=== PATIENT | female | born 1985 | race Caucasian/White ===

== ENCOUNTER 2017-12-26 19:31 | Observation (INO) | payer BC ==
[2017-12-26] MEDS ORDERED: METOCLOPRAMIDE 5 MG/ML 2 ML VIAL IVP STA (21:13)
[2017-12-26] MEDS ORDERED: SODIUM CHLORIDE 0.9% 1,000 ML IV STA (21:13)
[2017-12-26] MEDS ORDERED: diphenhydrAMINE 50 MG/ML 1 ML VIAL IVP STA (21:13)
[2017-12-26] MEDS ORDERED: ACETAMINOPHEN IV (For NPO) 1,000 MG in EMPTY BAG 1 BAG IVPB ONE (21:14)
--- NOTE | 2017-12-26 21:19 | ED ---
General Adult HPI - General Chief complaint: Headache Stated complaint: blurred vision/left side numbness/dizzy Time Seen by Provider: 12/26/17 21:01 Source: patient, RN notes reviewed, old records reviewed Mode of arrival: ambulatory Limitations: no limitations - History of Present Illness Initial comments: 32-year-old female presenting for evaluation of left eye vision changes, and left upper extremity numbness. Patient states that the symptoms began approximately 2 hours ago. They were accompanied by slight headache which was right-sided frontal. This headache has progressively worsened. It was not a severe sudden onset headache. His gradually worsening dull ache which is right frontal and right retro-orbital. Vision changes lasted approximately 10 minutes as well as or sensory changes to her left arm. No weakness appreciated. Patient has no previous history of significant headaches including no migraine history. She does have history of previous episode which affected the right side of her body approximately one year ago. She was seen in the emergency department and evaluated by neurology. She was instructed to take an aspirin. However she has not been taking this medication regularly. No other chronic medical problems. She does have some mild nausea, no vomiting. No chest pain or abdominal pain. Sensory changes are resolved as well as her vision is normal at the time my evaluation. She only complains of persistent right-sided headache. - Related Data Home Medications Medication Instructions Recorded Confirmed Lessina 28 1 tab PO DAILY 12/26/17 12/26/17 Allergies Allergy/AdvReac Type Severity Reaction Status Date / Time No Known Allergies Allergy Verified 12/26/17 20:24 Review of Systems ROS Statement: Those systems with pertinent positive or pertinent negative responses have been documented in the HPI. ROS Other: All systems not noted in ROS Statement are negative. Past Medical History Past Medical History: No Reported History History of Any Multi-Drug Resistant Organisms: None Reported Past Surgical History: Adenoidectomy Past Psychological History: No Psychological Hx Reported Smoking Status: Former smoker Past Alcohol Use History: Occasional Past Drug Use History: None Reported General Exam Limitations: no limitations General appearance: alert, in no apparent distress Head exam: Present: atraumatic, normocephalic Eye exam: Present: normal appearance, PERRL, EOMI ENT exam: Present: normal exam Neck exam: Present: normal inspection. Absent: tenderness, meningismus Respiratory exam: Present: normal lung sounds bilaterally, respiratory distress. Absent: wheezes Cardiovascular Exam: Present: regular rate, normal rhythm GI/Abdominal exam: Present: soft. Absent: distended, tenderness, guarding Extremities exam: Present: normal inspection, normal capillary refill. Absent: pedal edema Neurological exam: Present: alert, oriented X3, CN II-XII intact, other (No ataxia, normal [id number], normal finger to nose. NIH is 0). Absent: motor sensory deficit Psychiatric exam: Present: normal affect, normal mood Skin exam: Present: warm, dry, intact. Absent: cyanosis, diaphoretic Course Vital Signs 12/26/17 12/26/17 20:03 23:04 Temperature 98.4 F Pulse Rate 82 88 Respiratory 18 18 Rate Blood Pressure 135/79 129/70 O2 Sat by Pulse 100 98 Oximetry - Reevaluation(s) Reevaluation #1: 12/26/17 23:16 Reevaluation, no neurological complaints, nonfocal exam, NIH remains 0 Medical Decision Making - Medical Decision Making 32-year-old female presenting with left eye visual disturbance and left hand and forearm numbness. Patient does have similar episode in the past approximately one year ago but this was right sided. She was seen by neurology at that time. At the time my evaluation patient's neurologic exam is nonfocal, no ataxia. She is overall well-appearing. Normal eye exam. Laboratory studies are obtained, normal CBC, normal CMP head CT is obtained which is negative for intracranial hemorrhage or mass effect. Given the recurrence of this patient's symptoms, she will be placed in observation for neurology evaluation. Echo will be obtained. Patient will be started on aspirin. Case discussed with Dr. Izaguirre, who will accept admission - Lab Data Result diagrams: 12/26/17 21:25 12/26/17 21:25 Lab Results 12/26/17 12/26/17 Range/Units 21:25 21:25 WBC 7.9 (3.8-10.6) k/uL RBC 4.20 (3.80-5.40) m/uL Hgb 13.9 (11.4-16.0) gm/dL Hct 40.1 (34.0-46.0) % MCV 95.7 (80.0-100.0) fL MCH 33.2 (25.0-35.0) pg MCHC 34.7 (31.0-37.0) g/dL RDW 12.1 (11.5-15.5) % Plt Count 231 (150-450) k/uL Neutrophils % 81 % Lymphocytes % 13 % Monocytes % 4 % Eosinophils % 0 % Basophils % 0 % Neutrophils # 6.5 (1.3-7.7) k/uL Lymphocytes # 1.1 (1.0-4.8) k/uL Monocytes # 0.3 (0-1.0) k/uL Eosinophils # 0.0 (0-0.7) k/uL Basophils # 0.0 (0-0.2) k/uL Sodium 139 (137-145) mmol/L Potassium 4.0 (3.5-5.1) mmol/L Chloride 105 (98-107) mmol/L Carbon Dioxide 20 L (22-30) mmol/L Anion Gap 14 mmol/L BUN 12 (7-17) mg/dL Creatinine 0.71 (0.52-1.04) mg/dL Est GFR (CKD-EPI)AfAm >90 (>60 ml/min/1.73 sqM) Est GFR (CKD-EPI)NonAf >90 (>60 ml/min/1.73 sqM) Glucose 84 (74-99) mg/dL Calcium 9.4 (8.4-10.2) mg/dL Total Bilirubin 0.5 (0.2-1.3) mg/dL AST 22 (14-36) U/L ALT 25 (9-52) U/L Alkaline Phosphatase 47 (38-126) U/L Total Protein 6.8 (6.3-8.2) g/dL Albumin 4.4 (3.5-5.0) g/dL HCG, Quant <2.4 mIU/mL Disposition Clinical Impression: Headache, TIA (transient ischemic attack) Disposition: ADMITTED IP TO THIS [facility] Condition: Stable Referrals: None,Stated [Primary Care Provider] - 1-2 days Decision to Admit Reason: Admit from EC Decision Date: 12/26/17 Decision Time: 23:17
[2017-12-26 21:41] LABS: Basophils % (A) 0 %; Eosinophils % (A) 0 %; HCT 40.1 % (34.0-46.0); HGB 13.9 gm/dL (11.4-16.0); Lymphocytes # (A) 1.1 k/uL (1.0-4.8); Lymphocytes % (A) 13 %; MCH 33.2 pg (25.0-35.0); MCHC 34.7 g/dL (31.0-37.0); MCV 95.7 fL (80.0-100.0); Mean Platelet Volume 7.7; Monocytes # (A) 0.3 k/uL (0-1.0); Monocytes % (A) 4 %; Neutrophils # (A) 6.5 k/uL (1.3-7.7); Neutrophils % (A) 81 %; Platelet Count 231 k/uL (150-450); RDW 12.1 % (11.5-15.5); WBC 7.9 k/uL (3.8-10.6)
[2017-12-26 22:08] LABS: ALT 25 U/L (9-52); AST 22 U/L (14-36); Albumin 4.4 g/dL (3.5-5.0); Alkaline Phosphatase 47 U/L (38-126); Anion Gap 14 mmol/L; Blood Urea Nitrogen 12 mg/dL (7-17); Calcium 9.4 mg/dL (8.4-10.2); Carbon Dioxide 20 mmol/L (22-30); Chloride 105 mmol/L (98-107); Glucose 84 mg/dL (74-99); Sodium 139 mmol/L (137-145); Total Bilirubin 0.5 mg/dL (0.2-1.3); Total Protein 6.8 g/dL (6.3-8.2)
[2017-12-26 22:23] LABS: HCG,Quantitative Serum <2.4 mIU/mL
--- NOTE | 2017-12-26 22:38 | CT ---
EXAMINATION TYPE: CT brain wo con DATE OF EXAM: 12/26/2017 COMPARISON: 11/03/2014 HISTORY: Vision changes, dizziness, left sided numbness. CT DLP: 996.6 mGycm. Automated Exposure Control for Dose Reduction was Utilized. TECHNIQUE: CT scan of the head is performed without contrast. FINDINGS: Ventricles and sulci appear normal. There is no mass effect nor midline shift. There is n o sign of intracranial hemorrhage. The calvarium is intact. IMPRESSION: Negative CT scan of the brain. No change.
[2017-12-26] MEDS ORDERED: ACETAMINOPHEN TAB 500 MG TAB PO STA (23:07)
[2017-12-26] MEDS ORDERED: ACETAMINOPHEN TAB 325 MG TAB PO PRN (23:13)
[2017-12-26] MEDS ORDERED: NALOXONE 0.4 MG/ML 1 ML VIAL IV PRN (23:13)
[2017-12-26] MEDS ORDERED: ONDANSETRON 4 MG/2 ML VIAL IVP PRN (23:13)
[2017-12-26] MEDS ORDERED: IBUPROFEN 400 MG TAB PO PRN (23:13)
[2017-12-26] MEDS ORDERED: ASPIRIN 325 MG TAB PO STA (23:15)
[2017-12-26] MEDS ORDERED: SODIUM CHLORIDE 0.9% 1,000 ML IV SCH (23:15)
--- NOTE | 2017-12-27 01:06 | P.HPIM ---
History of Present Illness H&P Date: 12/27/17 Chief Complaint: left UE numbness and left eye vision change 32-year-old healthy female with no significant past medical history except for possible TIA 2 years ago. Patient presented with brief left eye vision changes and left upper extremity numbness she reports the symptoms lasted for 10 minutes and then resolves on its own followed by severe left-sided headache retro-orbital was not associated with any nausea or vomiting was not associated with dizziness or lightheadedness pain was initially dull and then kept on progressing to severe 8 out of 10 in severity and nonradiating resolve after receiving IV Tylenol in the ER. She reports no history of migraine she might had one attack severe headache in her life That she couldn't remember. Patient currently denies any focal neurologic deficits. Patient reports some life stressors related to her father having a stroke with symptoms similar to what she described she said her dad had some changes in his vision and then eventually was diagnosed with a stroke that's when she got concerned and wanted to get evaluated. She otherwise denies any fevers or chills denies any chest pain or trouble breathing denies any GI bleeding denies any abdominal pain denies any heat or cold intolerances denies any sick contacts denies any recent traveling. Review of Systems Pertinent positives as noted in HPI. All other systems were reviewed and are negative Past Medical History Past Medical History: No Reported History History of Any Multi-Drug Resistant Organisms: None Reported Past Surgical History: Adenoidectomy Past Psychological History: No Psychological Hx Reported Smoking Status: Former smoker Past Alcohol Use History: Occasional Past Drug Use History: None Reported - Past Family History Father Family Medical History: CVA/TIA Medications and Allergies Home Medications Medication Instructions Recorded Confirmed Type Lessina 28 1 tab PO DAILY 12/26/17 12/26/17 History Allergies Allergy/AdvReac Type Severity Reaction Status Date / Time No Known Allergies Allergy Verified 12/26/17 20:24 Physical Exam Vitals: Vital Signs Temp Pulse Resp BP Pulse Ox 12/26/17 23:04 88 18 129/70 98 12/26/17 20:03 98.4 F 82 18 135/79 100 Intake and Output 12/26/17 12/26/17 12/27/17 14:59 22:59 06:59 Other: Weight 56.699 kg Constitutional: No acute distress, conversant, pleasant Eyes: Anicteric sclerae, moist conjunctiva, no lid-lag Pupils equal round reactive to light ENMT: NC/AT Oropharynx clear, no erythema, or exudates Neck: Supple, FROM, no masses, or JVD No carotid bruits No thyromegaly Lungs: Clear to auscultation Clear to percussion Normal respiratory effort, no accessory muscle use Cardiovascular: Heart regular in rate and rhythm, No murmurs, gallops, or rubs No peripheral edema Abdominal: Soft Nontender, no guarding, rebound or rigidity Abdomen moving with respiration Normoactive bowel sounds No hepatomegaly, No splenomegaly No palpable mass No abdominal wall hernia noted Skin: Normal temperature, tone, texture, turgor No induration No subcutaneous nodules No rash, lesions No ulcers Extremities: No digital cyanosis No clubbing Pedal pulses intact and symmetrical Radial pulses intact and symmetrical No calf tenderness Psychiatric: Alert and oriented to person, place and time Appropriate affect fair judgment Neuro Muscles Strength 5/5 in all 4 extremities Sensation to light touch grossly present throughout Cranial nerves II-XII grossly intact No focal sensory deficits Cerebellar exam including finger-nose test was intact, heel ortega movement was intact Lymphatics: no palpable cervical or supraclavicular , or inguinal lymph nodes Results CBC & Chem 7: 12/26/17 21:25 12/26/17 21:25 Labs: Abnormal Lab Results - Last 24 Hours (Table) 12/26/17 Range/Units 21:25 Carbon Dioxide 20 L (22-30) mmol/L Assessment and Plan Assessment: 32-year-old female otherwise healthy The patient is admitted with an anticipated less than 2 midnight stay for evaluation of transient blurry vision of the left eye and left upper extremity numbness that lasted for about 10 minutes and resolved on its own suspected to be TIA patient also reported history of TIA 2 years ago. Patient admitted for further workup and neurologic evaluation Plan: #Brief left eye blurry vision and left upper extremity numbness rule out TIA Check carotid ultrasound Check 2-D echocardiogram CT head was negative Neurologic consults Neurochecks TSH B12 Lipid profile Aspirin #DVT prophylaxis Heparin subcu 3 times a day Surrogate decision-maker: Patient mother CODE STATUS: Full code Discussed with: Patient, ER, Anticipated discharge place: Home A total of 50 minutes was spent on the care of this complex patient more than 50 % of the time was spent in counseling and care coordination.
[2017-12-27] MEDS: HEPARIN SODIUM,PORCINE 5,000 UNIT/ML 1 ML VIAL SQ SCH ×2 (08:15→16:04)
[2017-12-27] MEDS ORDERED: ASPIRIN 325 MG TAB PO SCH (09:00)
--- NOTE | 2017-12-27 09:17 | US ---
EXAMINATION TYPE: US carotid duplex BILAT DATE OF EXAM: 12/27/2017 COMPARISON: US 12/23/14 CLINICAL HISTORY: tia. Patient claims visual disturbances and left hand numbness. EXAM MEASUREMENTS: RIGHT: Peak Systolic Velocity (PSV) cm/sec ----- Right CCA: 91.5 ----- Right ICA: 107.0 ----- Right ECA: 110.9 ICA/CCA ratio: 1.2 RIGHT: End Diastole cm/sec ----- Right CCA: 22.0 ----- Right ICA: 47.4 ----- Right ECA: 10.7 LEFT: Peak Systolic Velocity (PSV) cm/sec ----- Left CCA: 137.2 ----- Left ICA: 125.4 ----- Left ECA: 150.9 ICA/CCA ratio: 0.9 LEFT: End Diastole cm/sec ----- Left CCA: 30.8 ----- Left ICA: 36.7 ----- Left ECA: 17.8 VERTEBRALS (direction of flow): Right Vertebral: Antegrade Left Vertebral: Antegrade Rhythm: Normal tortuous left ICA. IMPRESSION: No evidence for hemodynamically significant stenosis. Criteria for Assigning % of Stenosis / Diameter reduction (Estimation based on the indirect measurements of the internal carotid artery velocities (ICA PSV). 1. Normal (no stenosis)=ICA PSV < 125 cm/s: ratio < 2.0: ICA EDV<40 cm/s. 2. Less than 50% stenosis=ICA PSV < 125 cm/s: ratio < 2.0: ICA EDV<40 cm/s. 3. 50 to 69% stenosis=ICA PSV of 125 to 230 cm/s: ration 2.0 ? 4.0: ICA EDV 40-100 cm/s. 4. Greater than 70% stenosis to near occlusion= ICA PSV > 230 cm/s: ratio > 4.0: ICA EDV > 100 cm/s. 5. Near occlusion= ICA PSV velocities may be low or undetectable: variable ratio and ICA EDV. 6. Total occlusion=unable to detect flow.
--- NOTE | 2017-12-27 10:54 | ECHOF ---
Referral Reason:tia MEASUREMENTS -------- HEIGHT: 170.2 cm WEIGHT: 56.7 kg BP: RVIDd: 2.4 cm (< 3.3) IVSd: 0.8 cm (0.6 - 1.1) LVIDd: 4.2 cm (3.9 - 5.3) LVPWd: 0.7 cm (0.6 - 1.1) IVSs: 1.0 cm LVIDs: 2.8 cm LVPWs: 1.2 cm LA Diam: 2.6 cm (2.7 - 3.8) Ao Diam: 2.4 cm (2.0 - 3.7) AV Cusp: 1.6 cm (1.5 - 2.6) LA Diam: 2.7 cm (2.7 - 3.8) MV EXCURSION: 16.074 mm (> 18.000) MV EF SLOPE: 116 mm/s (70 - 150) EPSS: 0.2 cm MV E Abilio: 0.93 m/s MV DecT: 170 ms MV A Abilio: 0.50 m/s MV E/A Ratio: 1.87 RAP: 5.00 mmHg RVSP: 22.99 mmHg FINDINGS -------- Sinus rhythm. This was a technically good study. LV size, wall thickness and systolic function are normal, with an EF greater than 55%. The left sonia tricular size is normal. The right ventricle is normal in size. The left atrial size is normal. The right atrial size is normal. The aortic valve is trileaflet, and appears structurally normal. No aortic stenosis or regurgitation. There is trace mitral regurgitation. Mild tricuspid regurgitation present. There is no evidence of pulmonary hypertension. The right v entricular systolic pressure, as measured by Doppler, is 22.99mmHg. There is no pulmonic regurgitation present. The aortic root size is normal. There is no pericardial effusion. CONCLUSIONS -------- 1. LV size, wall thickness and systolic function are normal, with an EF greater than 55%. 2. The left ventricular size is normal. 3. The right ventricle is normal in size. 4. The left atrial size is normal. 5. The right atrial size is normal. 6. The aortic valve is trileaflet, and appears structurally normal. No aortic stenosis or regurgitati on. 7. There is trace mitral regurgitation. 8. Mild tricuspid regurgitation present. 9. There is no evidence of pulmonary hypertension. 10. The right ventricular systolic pressure, as measured by Doppler, is 22.99mmHg. 11. There is no pulmonic regurgitation present. 12. The aortic root size is normal. 13. There is no pericardial effusion. JUMPBASTING MACHINE OPERATOR: Emilee Warren RDCS
[2017-12-27 13:42] VITALS: PULSE 69; RESP 16; TEMP 98
--- NOTE | 2017-12-27 17:56 | P.DS ---
Providers Date of admission: 12/26/17 23:15 Expected date of discharge: 12/27/17 Attending physician: Misa Izaguirre MD Consults: 12/26/17 23:14 Consult Physician Routine Consulting Provider: Yelitza Gilbert Consult Reason/Comments: Head Ache, TIA Do you want consulting provider notified?: Yes Primary care physician: Stated None Hospital Course: 32-year-old healthy female with no significant past medical history except for possible TIA 2 years ago. Patient presented with brief left eye vision changes and left upper extremity numbness she reports the symptoms lasted for 10 minutes and then resolves on its own followed by severe left-sided headache, located in the retro-orbital area was not associated with any nausea or vomiting , no dizziness or lightheadedness. Pain was initially dull and then kept on progressing to severe 8 out of 10 in severity and nonradiating, resolved after receiving IV Tylenol in the ER. Since her last TIA she was started on aspirin 81mg one a day but she has not been taking it for the last year. Patient reported some life stressors related to her father having a stroke with symptoms similar to what she described she said her dad had some changes in his vision and then eventually was diagnosed with a stroke that's when she got concerned and wanted to get evaluated. She otherwise denies any fevers or chills denies any chest pain or trouble breathing denies any GI bleeding denies any abdominal pain denies any heat or cold intolerances denies any sick contacts denies any recent traveling. Patient was admitted for TIA workup, she did not have any recurrent symptoms during the hospitalization. She was monitored on telemetry which did not reveal any abnormalities. She was evaluated by Dr. Gilbert from neurology who advised continuing aspirin 81 mg daily. Patient did have an echocardiogram and carotid Doppler and both were within normal limits. Patient will follow-up in the neurology office for further workup. I advised her to discontinue oral contraceptive pills as those can cause hypercoagulability. She will be discharged home in stable condition. Discharge diagnoses TIA Patient Condition at Discharge: Stable Plan - Discharge Summary Discharge Rx Participant: No New Discharge Prescriptions: New Aspirin 81 mg PO DAILY #60 chewable Discontinued Lessina 28 1 tab PO DAILY Discharge Medication List Aspirin 81 mg PO DAILY #60 chewable 12/27/17 [Rx] Follow up Appointment(s)/Referral(s): Yelitza Gilbert MD [STAFF PHYSICIAN] - 2 Weeks None,Stated [Primary Care Provider] - 1-2 days
[2017-12-27 18:30] VITALS: BP 115/69
--- NOTE | 2017-12-27 19:37 | CONS ---
CONSULTATION DATE OF CONSULTATION: 12/27/2017. CHIEF COMPLAINT: Possible transient ischemic attack. HISTORY OF PRESENT ILLNESS: The patient is a pleasant 32-year-old female, who is being evaluated by the neurology service per the request of Dr. Izaguirre for a possible transient ischemic attack. The patient came into [facility] Emergency Room after she had a sudden and transient episode of visual changes and left-sided numbness. The patient states that she was watching television when she suddenly noticed that her left eye had blurred vision involving the left visual field. Those symptoms lasted approximately 10 minutes and prior to resolving, she started having numbness and tingling in her left hand up to the middle of her forearm. The numbness also lasted approximately 10 minutes and resolved spontaneously. She reports a similar episode approximately 2 years ago involving her right upper extremity. In the emergency room, a CT scan of the brain was done which showed no abnormalities. Her carotid Doppler showed no hemodynamically significant stenosis. Her CBC, comprehensive metabolic profile and fasting lipid panel were all normal. The patient was admitted for further management. She denies any recurrence of any symptoms since her admission. The patient was started on aspirin 325 mg daily. PAST MEDICAL HISTORY: Questionable transient ischemic attack 2 years ago. The patient also has history of adenoidectomy. SOCIAL HISTORY: The patient is a former smoker. She occasionally drinks alcohol. She denies any drug use. FAMILY HISTORY: Positive for stroke. HOME MEDICATIONS: control pills. ALLERGIES: No known drug allergies. REVIEW OF SYSTEMS: As mentioned above and otherwise negative. PHYSICAL EXAM: Vital signs show a temperature of 98, pulse 69, respirations 16, blood pressure 116/70. GENERAL APPEARANCE: The patient is a well-developed female, who appears to be in no acute distress. HEENT: Normocephalic, atraumatic. No facial asymmetry is seen. Extraocular muscles are intact. Neck is supple with no masses felt. CARDIOVASCULAR: Regular rate and rhythm. ABDOMEN: Nontender nondistended. Extremities showed no edema or clubbing. NEUROLOGICAL: The patient is alert, aware and oriented x3. Speech and language are normal. Strength is full in all 4 extremities. No pronator drift is seen. Sensory exam was normal to light touch in all 4 extremities. No pronator drift is seen. No tremors or seizure-like activity is noticed. No facial asymmetry is seen on cranial nerve testing. IMPRESSION: 1. Transient ischemic attack. 2. Transient left eye visual changes, resolved. 3. Transient left upper extremity numbness, resolved. 4. Headache, resolved. RECOMMENDATION: The patient did have a transient episode of left eye visual changes and left hand numbness which were followed by a right-sided headache. Although she denies any previous history of migraines, she may have had a complicated migraine. Her CT scan of the brain and carotid Doppler were reviewed and they were normal. Less likely, this event could have been a transient ischemic attack. The patient's only risk factors for stroke are her family history and her current control pill use. She has been started on aspirin. From a neurology standpoint, the patient is cleared for discharge. She will need to follow up for further outpatient neurological workup including an MRI/MRA of the brain and a hypercoagulability workup. The patient will continue on aspirin daily at home. The patient was told to seek immediate medical attention if any further stroke-like symptoms occur. Thank you for allowing me to participate in the care of your patient. If you have any questions, please feel free to contact me. MMMARINEL / IJN: [id number] /
--- NOTE | 2017-12-28 09:31 | EEG ---
ELECTROENCEPHALOGRAM REPORT DATE OF SERVICE: 12/27/2017 REASON FOR TESTING: Transient ischemic attack. DESCRIPTION OF THE PROCEDURE: This EEG was performed using a 21 channel digital electroencephalograph, following international 10-20 system. DESCRIPTION OF THE RECORDING: From the beginning of the tracing, and with patient's eyes closed, the background rhythm was mostly consisting of 9-10 Hz alpha frequency in the posterior occipital leads. No obvious asymmetry is seen. Hyperventilation was performed with a minimal buildup of amplitude seen. No pathological waves were elicited. Photic stimulation was performed with a minimal driving response seen. No pathological waves were elicited. The patient does reach stage II of sleep during the tracing and occasional sleep spindles are seen. No epileptiform discharges were seen. Her EKG lead showed a regular rate and rhythm. INTERPRETATION: This asleep and awake EEG can be considered within normal limits. There was no asymmetry seen. No epileptiform discharges were noticed. The absence of epileptiform discharges does not rule out the diagnosis of epilepsy; therefore clinical correlation is recommended. MMALICIA / IJN: [id number] /
== END 2017-12-27 18:44 | disposition home or self-care (01) ==
LOC: EC 19:31 → 6SEL 23:15
PROVIDERS: ADMIT Internal Medicine; ATTEND Internal Medicine
DX: G45.9 Transient cerebral ischemic attack, unspecified (principal); T39.016A Underdosing of aspirin, initial encounter; R11.0 Nausea; Z87.891 Personal history of nicotine dependence; Z82.3 Family history of stroke; Z79.3 Long term (current) use of hormonal contraceptives
CPT/HCPCS: 99285 ×2; 96374 ×2; 96361 ×2; 96375 ×2; 96372 ×2; 36415; 95819; 93306; 80061; 80053; 84443; 85025; 84702; 93880; 70450; G0378 ×2; J1200; J1644; J2765

== ENCOUNTER → 2018-05-06 | Outpatient (CLI) | payer BC ==
[2018-05-06 09:17] LABS: D-Dimer <0.17 mg/L FEU (<0.60); Fibrinogen 258 mg/dL (200-500)
[2018-05-06 19:49] LABS: Cardiolipin Ab IgG Interp NEGATIVE (NEGATIVE); Cardiolipin Ab IgM Interp NEGATIVE (NEGATIVE); Cardiolipin IgA Antibody <0.5 U/mL; Cardiolipin IgM Antibody 0.9 U/mL
[2018-05-07 10:49] LABS: Protein C Antigen 117 % (72-160)
[2018-05-07 11:15] LABS: Anti-Thrombin III Antigen 97 % (80 - 120)
[2018-05-07 11:16] LABS: Protein S Antigen 67 % (50 - 140)
[2018-05-07 12:14] LABS: APTT 38 Sec(s) (<43); Dilute Russell Viper Venom 36 Sec(s) (<44)
[2018-05-07 13:59] LABS: Protein C (Activity) 102 % (71-138)
[2018-05-07 14:57] LABS: Anti-Thrombin III Activity 108 % (79-109)
== END | disposition home or self-care (01) ==
LOC: LABWHC1 08:16
PROVIDERS: ATTEND Psychiatry & Neurology Pain Medicine
DX: R51 Headache (principal); G45.9 Transient cerebral ischemic attack, unspecified
CPT/HCPCS: 36415; 83090; 85300; 85301; 85302; 85303; 85305; 85306; 85379; 85384; 85613; 85730; 86147

== ENCOUNTER 2018-08-30 23:28 | Emergency (ER) | payer BC ==
[2018-08-31] MEDS ORDERED: ACETAMINOPHEN TAB 500 MG TAB PO STA (00:11)
[2018-08-31] MEDS ORDERED: SODIUM CHLORIDE 0.9% 500 ML 500 ML IV SCH (00:15)
--- NOTE | 2018-08-31 00:16 | ED ---
General Adult HPI - General Chief complaint: Fever Stated complaint: Fever/Nausea/LLQ pain Time Seen by Provider: 08/30/18 23:55 Source: patient, family, RN notes reviewed Mode of arrival: ambulatory Limitations: no limitations - History of Present Illness Initial comments: 33-year-old female presents to the emergency department for a chief complaint of a fever 3 days. Patient states this started when she had vomiting and diarrhea. Patient states she was having multiple bouts of diarrhea which resolved yesterday. Patient denies dysuria. Denies vaginal discharge. States she had IUD placed 1 month ago. No cough or congestion. Patient does admit to the left lower quadrant abdominal pain and pressure. Patient has no other complaints at this time including shortness of breath, chest pain, nausea or vomiting, headache, or visual changes. - Related Data Previous Rx's Medication Instructions Recorded Aspirin 81 mg PO DAILY #60 chewable 12/27/17 Sulfamethox-Tmp 800-160Mg [Bactrim 1 tab PO Q12HR #10 tab 08/31/18 DS 800-160 mg] Allergies Allergy/AdvReac Type Severity Reaction Status Date / Time No Known Allergies Allergy Verified 08/30/18 23:52 Review of Systems ROS Statement: Those systems with pertinent positive or pertinent negative responses have been documented in the HPI. ROS Other: All systems not noted in ROS Statement are negative. Past Medical History Past Medical History: Syncope Additional Past Medical History / Comment(s): 2015 possible TIA, past ruptured L ovarian cyst with syncopal episode. History of Any Multi-Drug Resistant Organisms: None Reported Past Surgical History: Adenoidectomy Past Anesthesia/Blood Transfusion Reactions: No Reported Reaction Past Psychological History: No Psychological Hx Reported Smoking Status: Never smoker - Past Family History Father Family Medical History: CVA/TIA Additional Family Medical History / Comment(s): Father had a CVA 3 weeks ago and is currently in rehab. Mother Additional Family Medical History / Comment(s): Ovarian cyst ruptured and she was in ICU General Exam Limitations: no limitations General appearance: alert, in no apparent distress Head exam: Present: atraumatic, normocephalic, normal inspection Eye exam: Present: normal appearance, PERRL, EOMI. Absent: scleral icterus, conjunctival injection, periorbital swelling ENT exam: Present: normal exam, mucous membranes moist Neck exam: Present: normal inspection, full ROM. Absent: tenderness, meningismus, lymphadenopathy Respiratory exam: Present: normal lung sounds bilaterally. Absent: respiratory distress, wheezes, rales, rhonchi, stridor Cardiovascular Exam: Present: regular rate, normal rhythm, normal heart sounds. Absent: systolic murmur, diastolic murmur, rubs, gallop, clicks GI/Abdominal exam: Present: soft, tenderness (minimal LLQ tenderness without guarding or rebound), normal bowel sounds. Absent: distended, guarding, rebound , rigid External exam: Present: normal external exam. Absent: erythema, swelling, lesions, lacerations, ecchymosis Speculum exam: Present: normal speculum exam, vaginal bleeding (minimal vaginal bleeding noted). Absent: erythema, vaginal discharge, cervical discharge, foreign body By manual exam: Present: normal by manual exam. Absent: cervical motion tenderness, adnexal tenderness, adnexal mass, uterine enlargement, uterine tenderness, other Neurological exam: Present: alert, oriented X3, CN II-XII intact Psychiatric exam: Present: normal affect, normal mood Course Vital Signs 08/30/18 08/31/18 23:50 02:02 Temperature 99.9 F H 99.7 F H Pulse Rate 116 H 89 Respiratory 20 16 Rate Blood Pressure 118/70 110/81 O2 Sat by Pulse 98 100 Oximetry Medical Decision Making - Medical Decision Making 33-year-old female presents to the emergency department for a chief clinic fever 3 days. Patient has also had diarrhea and vomiting that subsided yesterday. No dysuria. No concern for sexually transmitted diseases. Patient also extremity left lower quadrant pain. Patient does have a low-grade temperature of 99.9 with a pulse rate of 116 on presentation to the emergency department. She is well-appearing. Minimal left lower quadrant tenderness noted. Pelvic exam did not reveal any significant adnexal tenderness. CBC and CMP are unremarkable. White count within normal limits. Urine likely contaminated but may show evidence of infection. CT abdomen and pelvis shows gastric wall thickening or underdistention. There are fluid and air and small bowel loops which are likely related to gastroenteritis which does fit patient' s clinical history. This is likely the cause of patient's fever. There are also slightly prominent ovaries, ultrasound may be considered. However patient does not have adnexal tenderness on exam she will follow up with primary care for this. I did offer to either culture or treat urinary tract infection and patient would rather treat this. Patient will follow up with primary care. Discussed returning here if symptoms are not resolving. - Lab Data Result diagrams: 08/31/18 00:29 08/31/18 00:29 Lab Results 08/31/18 08/31/18 08/31/18 Range/Units 00:29 00:29 00:29 WBC 4.0 (3.8-10.6) k/uL RBC 4.52 (3.80-5.40) m/uL Hgb 14.8 (11.4-16.0) gm/dL Hct 44.1 (34.0-46.0) % MCV 97.7 (80.0-100.0) fL MCH 32.7 (25.0-35.0) pg MCHC 33.4 (31.0-37.0) g/dL RDW 11.9 (11.5-15.5) % Plt Count 178 (150-450) k/uL Neutrophils % 74 % Lymphocytes % 14 % Monocytes % 9 % Eosinophils % 1 % Basophils % 0 % Neutrophils # 3.0 (1.3-7.7) k/uL Lymphocytes # 0.6 L (1.0-4.8) k/uL Monocytes # 0.4 (0-1.0) k/uL Eosinophils # 0.0 (0-0.7) k/uL Basophils # 0.0 (0-0.2) k/uL Sodium 138 (137-145) mmol/L Potassium 3.5 (3.5-5.1) mmol/L Chloride 104 (98-107) mmol/L Carbon Dioxide 25 (22-30) mmol/L Anion Gap 9 mmol/L BUN 9 (7-17) mg/dL Creatinine 0.63 (0.52-1.04) mg/dL Est GFR (CKD-EPI)AfAm >90 (>60 ml/min/1.73 sqM) Est GFR (CKD-EPI)NonAf >90 (>60 ml/min/1.73 sqM) Glucose 95 (74-99) mg/dL Plasma Lactic Acid Thor 0.8 (0.7-2.0) mmol/L Calcium 8.9 (8.4-10.2) mg/dL Total Bilirubin 0.4 (0.2-1.3) mg/dL AST 22 (14-36) U/L ALT 28 (9-52) U/L Alkaline Phosphatase 73 (38-126) U/L Total Protein 6.7 (6.3-8.2) g/dL Albumin 4.0 (3.5-5.0) g/dL Urine Color Urine Appearance (Clear) Urine pH (5.0-8.0) Ur Specific [place] (1.001-1.035) Urine Protein (Negative) Urine Glucose (UA) (Negative) Urine Ketones (Negative) Urine Blood (Negative) Urine Nitrite (Negative) Urine Bilirubin (Negative) Urine Urobilinogen (<2.0) mg/dL Ur Leukocyte Esterase (Negative) Urine RBC (0-5) /hpf Urine WBC (0-5) /hpf Ur Squamous Epith Cells (0-4) /hpf Urine Bacteria (None) /hpf Urine Mucus (None) /hpf Urine HCG, Qual (Not Detectd) Influenza Type A RNA (Not Detectd) Influenza Type B (PCR) (Not Detectd) 08/31/18 08/31/18 08/31/18 Range/Units 00:29 00:29 00:29 WBC (3.8-10.6) k/uL RBC (3.80-5.40) m/uL Hgb (11.4-16.0) gm/dL Hct (34.0-46.0) % MCV (80.0-100.0) fL MCH (25.0-35.0) pg MCHC (31.0-37.0) g/dL RDW (11.5-15.5) % Plt Count (150-450) k/uL Neutrophils % % Lymphocytes % % Monocytes % % Eosinophils % % Basophils % % Neutrophils # (1.3-7.7) k/uL Lymphocytes # (1.0-4.8) k/uL Monocytes # (0-1.0) k/uL Eosinophils # (0-0.7) k/uL Basophils # (0-0.2) k/uL Sodium (137-145) mmol/L Potassium (3.5-5.1) mmol/L Chloride (98-107) mmol/L Carbon Dioxide (22-30) mmol/L Anion Gap mmol/L BUN (7-17) mg/dL Creatinine (0.52-1.04) mg/dL Est GFR (CKD-EPI)AfAm (>60 ml/min/1.73 sqM) Est GFR (CKD-EPI)NonAf (>60 ml/min/1.73 sqM) Glucose (74-99) mg/dL Plasma Lactic Acid Thor (0.7-2.0) mmol/L Calcium (8.4-10.2) mg/dL Total Bilirubin (0.2-1.3) mg/dL AST (14-36) U/L ALT (9-52) U/L Alkaline Phosphatase (38-126) U/L Total Protein (6.3-8.2) g/dL Albumin (3.5-5.0) g/dL Urine Color Yellow Urine Appearance Turbid H (Clear) Urine pH 5.5 (5.0-8.0) Ur Specific [place] 1.007 (1.001-1.035) Urine Protein Trace H (Negative) Urine Glucose (UA) Negative (Negative) Urine Ketones Negative (Negative) Urine Blood Moderate H (Negative) Urine Nitrite Negative (Negative) Urine Bilirubin Negative (Negative) Urine Urobilinogen <2.0 (<2.0) mg/dL Ur Leukocyte Esterase Small H (Negative) Urine RBC 6 H (0-5) /hpf Urine WBC 18 H (0-5) /hpf Ur Squamous Epith Cells 36 H (0-4) /hpf Urine Bacteria Many H (None) /hpf Urine Mucus Moderate H (None) /hpf Urine HCG, Qual Not Detected (Not Detectd) Influenza Type A RNA Not Detected (Not Detectd) Influenza Type B (PCR) Not Detected (Not Detectd) Disposition Clinical Impression: Fever, Abdominal pain Disposition: HOME SELF-CARE Condition: Good Instructions (If sedation given, give patient instructions): Fever in Adults ( ED), Abdominal Pain (ED) Additional Instructions: Please take Motrin and Tylenol for pain. Please follow-up with primary care in 1-2 days. If symptoms are not resolving or your having worsening symptoms return to the emergency department. Prescriptions: Sulfamethox-Tmp 800-160Mg [Bactrim DS 800-160 mg] 1 tab PO Q12HR #10 tab Is patient prescribed a controlled substance at d/c from ED?: No Referrals: Flora Arthur MD [REFERRING] - 1-2 days Time of Disposition: 02:29
[2018-08-31 00:49] LABS: Basophils % (A) 0 %; Eosinophils % (A) 1 %; HCT 44.1 % (34.0-46.0); HGB 14.8 gm/dL (11.4-16.0); Lymphocytes # (A) 0.6 k/uL (1.0-4.8); Lymphocytes % (A) 14 %; MCH 32.7 pg (25.0-35.0); MCHC 33.4 g/dL (31.0-37.0); MCV 97.7 fL (80.0-100.0); Mean Platelet Volume 6.8; Monocytes # (A) 0.4 k/uL (0-1.0); Monocytes % (A) 9 %; Neutrophils % (A) 74 %; Platelet Count 178 k/uL (150-450); RBC 4.52 m/uL (3.80-5.40); RDW 11.9 % (11.5-15.5)
[2018-08-31 00:53] LABS: Appearance,Urine Turbid (Clear); Bacteria,Urine Many /hpf; Bilirubin,Urine Negative (Negative); Blood,Urine Moderate (Negative); Color,Urine Yellow; Glucose,Urine (UA) Negative (Negative); Ketones,Urine Negative (Negative); Leukocyte Esterase,Urine Small (Negative); Mucus,Urine Moderate /hpf; Nitrite,Urine Negative (Negative); PH, Urine 5.5 (5.0-8.0); Protein,Urine Trace (Negative); RBC,Urine 6 /hpf (0-5); Specific Gravity,Urine 1.007 (1.001-1.035); Squamous Epithelial Cell,Urine 36 /hpf (0-4); Urobilinogen,Urine <2.0 mg/dL (<2.0); WBC,Urine 18 /hpf (0-5)
[2018-08-31 00:58] LABS: ALT 28 U/L (9-52); AST 22 U/L (14-36); Alkaline Phosphatase 73 U/L (38-126); Anion Gap 9 mmol/L; Blood Urea Nitrogen 9 mg/dL (7-17); Calcium 8.9 mg/dL (8.4-10.2); Carbon Dioxide 25 mmol/L (22-30); Chloride 104 mmol/L (98-107); Glucose 95 mg/dL (74-99); Potassium 3.5 mmol/L (3.5-5.1); Sodium 138 mmol/L (137-145); Total Bilirubin 0.4 mg/dL (0.2-1.3); Total Protein 6.7 g/dL (6.3-8.2)
--- NOTE | 2018-08-31 01:47 | CT ---
EXAM: CT Abdomen and Pelvis With Intravenous Contrast CLINICAL HISTORY: left flank pain, nausea CT Reason: Pain TECHNIQUE: Axial computed tomography images of the abdomen and pelvis with intravenous contrast. CTDI is 5.7 mGy and DLP is 523.5 mGy-cm. This CT exam was performed using one or more of the following dose reduction techniques: automated exposure control, adjustment of the mA and/or kV according to patient size, and/or use of iterative reconstruction technique. COMPARISON: No relevant prior studies available. FINDINGS: Lung bases: Mild basilar atelectatic changes. ABDOMEN: Liver: Unremarkable. Gallbladder and bile ducts: Minimal prominence of the gallbladder wall, nonspecific. Pancreas: Unremarkable. Spleen: Unremarkable. Adrenals: Unremarkable. Kidneys and ureters: No significant hydronephrosis or definite ureteral stone visualized. Stomach and bowel: Gastric wall thickening or underdistention. Fluid and air in small bowel loops, nonspecific. No evidence of small bowel obstruction. Moderate amount of stool in the colon. Mild rectosigmoid wall thickening or underdistention. PELVIS: Appendix: Tubular structure in the right lower quadrant likely represents a partially visualized normal caliber appendix. Bladder: Unremarkable. Reproductive: Slightly prominent ovaries. IUD noted. Trace pelvic free fluid. Left adnexal calcific density. ABDOMEN and PELVIS: Intraperitoneal space: No free air. Bones/joints: No acute fracture. Soft tissues: Unremarkable. Vasculature: Unremarkable. Lymph nodes: Unremarkable. IMPRESSION: 1. Gastric wall thickening or underdistention. Fluid and air in small bowel loops, nonspecific. Correlate clinically for gastroenteritis. 2. Slightly prominent ovaries. Trace pelvic free fluid. Ultrasound may be considered if indicated.
[2018-08-31 02:03] VITALS: BP 110/81; PULSE 89; RESP 16; TEMP 99.7
[2018-08-31] MEDS ORDERED: SULFAMETH-TMP DS STARTER PACK 2 TAB BTL PO STA (02:31)
[2018-09-02 13:13] LABS: C. trachomatis,PCR Negative (Neg,Equiv); Chlamydia trachomatis Source Urine
[2018-09-02 13:19] LABS: N. gonorrhoeae,PCR Negative (Neg,Equiv); Neisseria Source Urine
== END 2018-08-31 02:49 | disposition home or self-care (01) ==
LOC: EC 23:28
DX: R50.9 Fever, unspecified (principal); R10.32 Left lower quadrant pain; R93.3 Abnormal findings on diagnostic imaging of other parts of digestive tract; N93.9 Abnormal uterine and vaginal bleeding, unspecified; Z97.5 Presence of (intrauterine) contraceptive device; Z84.2 Family history of other diseases of the genitourinary system
CPT/HCPCS: 36415; 80053; 83605; 85025; 81001; 81025; 87040; 87491; 87591; 87086; 87502; 74177; 99284; Q9967

== ENCOUNTER 2018-09-01 12:24 | Emergency (ER) | payer BC ==
[2018-09-01] MEDS ORDERED: predniSONE 50 MG TAB PO STA (12:44)
[2018-09-01] MEDS ORDERED: diphenhydrAMINE 50 MG CAP PO STA (12:44)
[2018-09-01] MEDS ORDERED: FAMOTIDINE 20 MG TAB PO STA (12:45)
--- NOTE | 2018-09-01 12:50 | ED ---
Allergic Reaction HPI - General Chief complaint: Allergic Reaction Stated complaint: MED REACTION Time Seen by Provider: 09/01/18 12:31 Source: patient Mode of arrival: ambulatory Limitations: no limitations - History of Present Illness Initial Comments: Patient is a 33-year-old female presenting for ALLERGIC reaction. She states that she was seen here on Sunday and diagnosed with a urinary tract infection. Given Bactrim and started it on Sunday at 4 AM. He states that this morning, she started having itching as well as some redness on the back of her neck. She denies any shortness of breath as well as throat swelling. She called the ER and they told her to come in for further evaluation. - Related Data Previous Rx's Medication Instructions Recorded Aspirin 81 mg PO DAILY #60 chewable 12/27/17 Sulfamethox-Tmp 800-160Mg [Bactrim 1 tab PO Q12HR #10 tab 08/31/18 DS 800-160 mg] Cephalexin [Keflex] 500 mg PO Q12HR 7 Days #14 cap 09/01/18 Famotidine [Pepcid] 20 mg PO DAILY #4 tablet 09/01/18 predniSONE 50 mg PO DAILY #4 tablet 09/01/18 Allergies Allergy/AdvReac Type Severity Reaction Status Date / Time No Known Allergies Allergy Verified 09/01/18 12:26 Review of Systems ROS Statement: Those systems with pertinent positive or pertinent negative responses have been documented in the HPI. Constitutional: Negative for chills, fatigue and fever. HENT: Negative for congestion. Respiratory: Negative for chest tightness, shortness of breath and wheezing. Negative for cough Cardiovascular: Negative for chest pain and palpitations. Gastrointestinal: Negative for abdominal pain. Negative for abdominal distention , diarrhea, nausea and vomiting. Genitourinary: Negative for dysuria. Musculoskeletal: Negative for back pain, neck pain and neck stiffness. Skin: Positive for color change. Neurological: Negative for dizziness, speech difficulty, weakness and light- headedness. Psychiatric/Behavioral: Negative for agitation and confusion. Negative for anxiety ROS Other: All systems not noted in ROS Statement are negative. Past Medical History Past Medical History: Syncope Additional Past Medical History / Comment(s): 2014 possible TIA, past ruptured L ovarian cyst with syncopal episode. History of Any Multi-Drug Resistant Organisms: None Reported Past Surgical History: Adenoidectomy Past Anesthesia/Blood Transfusion Reactions: No Reported Reaction Past Psychological History: No Psychological Hx Reported Smoking Status: Never smoker Past Alcohol Use History: None Reported Past Drug Use History: None Reported - Past Family History Father Family Medical History: CVA/TIA Additional Family Medical History / Comment(s): Father had a CVA 3 weeks ago and is currently in rehab. Mother Additional Family Medical History / Comment(s): Ovarian cyst ruptured and she was in ICU General Exam - General Exam Comments Initial Comments: Constitutional: Pt appears well-developed and well-nourished. No distress. Head: Normocephalic and atraumatic. Eyes: EOM are normal. Neck: Normal range of motion. Neck supple. Mouth: No oropharyngeal swelling or edema Cardiovascular: Normal rate, regular rhythm, S1 normal, S2 normal and normal heart sounds. Exam reveals no gallop and no friction rub. No murmur heard. Pulmonary/Chest: Effort normal and breath sounds normal. No tachypnea and no bradypnea. No respiratory distress. No wheezes or rales noted. Abdominal: Soft. Bowel sounds are normal. Pt exhibits no shifting dullness, no distension, no pulsatile liver, no fluid wave, no abdominal bruit and no ascites. There is no rigidity, no rebound, no guarding, no tenderness at McBurney's point and negative Preciado's sign. There is no tenderness. Musculoskeletal: Normal range of motion. Neurological: Pt is alert and oriented to person, place, and time. No cranial nerve deficit. Skin: Skin is warm and dry. No rash noted. Pt is not diaphoretic. No pallor. Mild erythema on the posterior aspect of the neck. No urticaria noted Psychiatric: Pt has a normal mood and affect. Pt behavior is normal. Thought content normal. Limitations: no limitations Course Vital Signs 09/01/18 12:26 Temperature 98.2 F Pulse Rate 68 Respiratory 18 Rate Blood Pressure 116/80 O2 Sat by Pulse 100 Oximetry Medical Decision Making - Medical Decision Making Patient showed no evidence of anaphylaxis or airway compromise. Because of this , the patient was given Benadryl, steroids as well as Pepcid and advised to change the Bactrim to Keflex which she was also given a prescription for. She was given a prescription for this steroids as well as the Pepcid and was noted to be resting in bed comfortably with normal vital signs temp disposition. Patient was advised follow-up with PCP and/or return to emergency Department symptoms worsen. Patient was agreeable plan Disposition Clinical Impression: Allergic reaction Disposition: HOME SELF-CARE Condition: Good Instructions (If sedation given, give patient instructions): Anaphylaxis (ED) Prescriptions: Cephalexin [Keflex] 500 mg PO Q12HR 7 Days #14 cap Famotidine [Pepcid] 20 mg PO DAILY #4 tablet predniSONE 50 mg PO DAILY #4 tablet Is patient prescribed a controlled substance at d/c from ED?: No Referrals: None,Stated [Primary Care Provider] - 1-2 days Time of Disposition: 12:50
[2018-09-01 13:23] VITALS: BP 128/70; PULSE 79; RESP 16; TEMP 98.3
== END 2018-09-01 13:21 | disposition home or self-care (01) ==
LOC: EC 12:24
DX: L29.9 Pruritus, unspecified (principal); T37.0X5A Adverse effect of sulfonamides, initial encounter
CPT/HCPCS: 99283; J7512